=== PATIENT | female | born 1945 | race African-American/Black ===

== ENCOUNTER 2020-01-06 14:46 | Emergency (ER) | payer MEDICARE ==
[~2020-01-06] VITALS: Ht 165.1 cm; Wt 70.0 kg
[2020-01-06] MEDS ORDERED: IBUPROFEN 600MG TABLET PO STA (15:13)
[2020-01-06] MEDS ORDERED: ONDANSETRON 4MG ODT PO STA (15:13)
[2020-01-06] MEDS ORDERED: ACETAMINOPHEN 325MG TABLET PO ONE (15:45)
[2020-01-06 16:25] LABS: BASOPHILS % 0.5 % (0.0-2.0); EOSINOPHILS % 0.2 % (0.0-5.0); HEMATOCRIT. 36.2 % (36.0-48.0); HEMOGLOBIN. 11.8 g/dL (12.0-16.0); LYMPHOCYTES % 12.5 % (20.0-50.0); MEAN CORPUSCULAR HEMOGLOBIN 30.7 pg (28.0-32.0); MEAN CORPUSCULAR VOLUME 94.1 fL (81.0-99.0); MEAN PLATELET VOLUME 8.3 fl (7.4-10.4); MONOCYTES % 8.4 % (2.0-8.0); NEUTROPHILS % 78.4 % (40.0-76.0); PLATELET 196 x1000/uL (130-400); RED BLOOD CELL COUNT 3.85 mill/uL (4.2-5.4); RED CELL DISTRIBUTION WIDTH 14.8 % (11.6-14.6)
[2020-01-06 16:31] LABS: CHLORIDE 107 mEq/L (98-107)
[2020-01-06] MEDS ORDERED: AMLODIPINE 5MG TABLET PO ONE (16:45)
[2020-01-06] MEDS ORDERED: NITROGLYCERIN 0.4MG TABLET SL SL PRN (16:45)
[2020-01-06 17:39] LABS: *AMPHETAMINES SCREEN URINE NEGATIVE (NEGATIVE); *BARBITURATES SCREEN URINE NEGATIVE (NEGATIVE)
[2020-01-06 17:40] LABS: *BENZODIAZEPINES SCREEN URINE NEGATIVE (NEGATIVE); *COCAINE SCREEN URINE NEGATIVE (NEGATIVE); CANNABINOID URINE SCREEN NEGATIVE (NEGATIVE); METHADONE URINE SCREEN NEGATIVE (NEGATIVE); OPIATES URINE SCREEN PRESUMTIVE POSITIVE (NEGATIVE); PHENCYCLIDINE URINE SCREEN NEGATIVE (NEGATIVE)
[2020-01-06 18:59] VITALS: BP 168/94
== END 2020-01-06 19:08 | disposition home or self-care (01) ==
LOC: ER 14:46
DX: I16.0 Hypertensive urgency (principal); M25.512 Pain in left shoulder; J44.9 Chronic obstructive pulmonary disease, unspecified; Z88.0 Allergy status to penicillin
CPT/HCPCS: 36415; 71045; 73030; 80053; 80305; 85025; 93005; 99285; Q0162

== ENCOUNTER 2022-04-26 02:41 | Inpatient (IN) | payer MEDICARE ==
[~2022-04-26] VITALS: Ht 165.1 cm; Wt 80.3 kg
[2022-04-26] MEDS ORDERED: IBUPROFEN 400MG TABLET PO ONE (03:45)
[2022-04-26] MEDS ORDERED: ACETAMINOPHEN 325MG TABLET PO ONE (03:45)
[2022-04-26] MEDS ORDERED: MORPHINE SULFATE 2 MG/ML CPJ (NOT FOR IM USE) IV ONE (04:45)
[2022-04-26] MEDS ORDERED: ONDANSETRON HCL 4MG/2ML INJ IV STA (05:37)
[2022-04-26] MEDS ORDERED: MORPHINE SULFATE 4 MG/ML CPJ (NOT FOR IM USE) IV STA (05:37)
[2022-04-26] MEDS ORDERED: SODIUM CHLORIDE 0.9% 500 ML IV ONE (05:45)
[2022-04-26 10:36] LABS: BASOPHILS % 0.1 % (0.0-2.0); EOSINOPHILS % 0.3 % (0.0-5.0); HEMATOCRIT. 39.8 % (36.0-48.0); HEMOGLOBIN. 12.7 g/dL (12.0-16.0); LYMPHOCYTES % 13.3 % (20.0-50.0); MEAN CORPUSCULAR HEMOGLOBIN 31.2 pg (28.0-32.0); MEAN CORPUSCULAR VOLUME 98.1 fL (81.0-99.0); MEAN PLATELET VOLUME 8.1 fl (7.4-10.4); NEUTROPHILS % 77.3 % (40.0-76.0); PLATELET 178 x1000/uL (130-400); RED BLOOD CELL COUNT 4.06 mill/uL (4.2-5.4); RED CELL DISTRIBUTION WIDTH 15.4 % (11.6-14.6)
[2022-04-26 10:45] LABS: CHLORIDE 106 mEq/L (98-107)
[2022-04-26 11:00] LABS: T4 FREE 1.24 ng/dL (0.76-1.46)
[2022-04-26 12:23] VITALS: BP 199/116
[2022-04-26 12:55] VITALS: BP 199/111
[2022-04-26 13:00] VITALS: BP 120/47
[2022-04-26] MEDS ORDERED: LISINOPRIL 20MG TABLET PO SCH (13:00)
[2022-04-26] MEDS ORDERED: AMLODIPINE 10MG TABLET PO SCH (13:00)
[2022-04-26] MEDS ORDERED: CLONIDINE 0.3MG TABLET PO NR (13:00)
[2022-04-26] MEDS: MORPHINE SULFATE 2 MG/ML CPJ (NOT FOR IM USE) IV PRN (13:17)
[2022-04-26] MEDS ORDERED: HYDRALAZINE HCL 50MG TABLET PO SCH (14:00)
[2022-04-26] MEDS ORDERED: DEXT 5%/0.45% NACL 1000ML 1,000 ML IV SCH (14:45)
[2022-04-26 16:52] VITALS: BP 112/46
[2022-04-26] MEDS ORDERED: ACETAMINOPHEN 325MG TABLET PO PRN (17:45)
[2022-04-26] MEDS ORDERED: ONDANSETRON HCL 4MG/2ML INJ IV PRN (17:45)
[2022-04-26] MEDS ORDERED: GUAIFENESIN 200MG/10ML SUGAR FREE UDC PO PRN (17:45)
[2022-04-26] MEDS ORDERED: IPRATROPIUM/ALBUTEROL 0.5-3(2.5)MG/3ML NEB HHN PRN (17:45)
[2022-04-26] MEDS ORDERED: DEXTROSE 50% WATER 50ML SYRINGE IV PRN (17:45)
[2022-04-26] MEDS ORDERED: MAGNESIUM/ALUMINUM HYDROXIDE/SIMETHICONE 30ML UDC PO PRN (17:45)
[2022-04-26] MEDS ORDERED: LISI40TA13 PO (18:09)
[2022-04-26] MEDS ORDERED: AMLO2.5T45 PO (18:09)
[2022-04-26] MEDS ORDERED: HYDR25TA PO (18:09)
[2022-04-26] MEDS ORDERED: IPRATROPIUM BROMIDE (0.02%) 0.5MG/2.5ML NEB HHN PRN (18:15)
[2022-04-26] MEDS ORDERED: NALOXONE HCL 0.4MG/ML VIAL IV PRN (18:15)
[2022-04-26] MEDS ORDERED: ALBUTEROL (0.083%) 2.5MG/3ML NEB HHN PRN (18:15)
[2022-04-26] MEDS ORDERED: ALLO100T PO (18:21)
[2022-04-26] MEDS ORDERED: WARF4TAB71 PO (18:21)
[2022-04-26 19:55] LABS: PROTHROMBIN TIME 20.6 sec (9.6-11.0)
[2022-04-26] MEDS: SODIUM CHLORIDE 0.9% 1,000 ML IV SCH (19:57)
[2022-04-26 20:00] VITALS: BP 129/59
[2022-04-26] MEDS: FAMOTIDINE 20MG TABLET PO SCH (21:21)
[2022-04-26 21:52] LABS: TOTAL IRON BINDING CAPACITY 221 ug/dL (250-450)
[2022-04-26 21:57] LABS: CREATINE KINASE 332 IU/L (26-192); CREATINE KINASE MB FRACTION 2.7 ng/mL (0.5-3.6)
[2022-04-26] MEDS ORDERED: CLONIDINE 0.3MG TABLET PO SCH (22:00)
[2022-04-26 22:11] LABS: FERRITIN 168 ng/mL (10-291)
[2022-04-26 22:31] LABS: VITAMIN B12 SERUM 1778 pg/mL (211-911)
[2022-04-26 22:55] LABS: FOLIC ACID (FOLATE) SERUM > 20.00 ng/mL (>5.38)
[2022-04-27] VITALS: BP 130/64
[2022-04-27] MEDS: MORPHINE SULFATE 2 MG/ML CPJ (NOT FOR IM USE) IV PRN ×4 (05:29→22:47)
[2022-04-27] MEDS: CLONIDINE 0.1MG TABLET PO PRN (05:46)
[2022-04-27 07:25] LABS: BASOPHILS % 0.3 % (0.0-2.0); EOSINOPHILS % 0.6 % (0.0-5.0); HEMATOCRIT. 35.1 % (36.0-48.0); HEMOGLOBIN. 11.6 g/dL (12.0-16.0); LYMPHOCYTES % 15.7 % (20.0-50.0); MEAN CORPUSCULAR HEMOGLOBIN 31.6 pg (28.0-32.0); MEAN CORPUSCULAR VOLUME 95.4 fL (81.0-99.0); MEAN PLATELET VOLUME 8.3 fl (7.4-10.4); MONOCYTES % 10.2 % (2.0-8.0); NEUTROPHILS % 73.2 % (40.0-76.0); PLATELET 175 x1000/uL (130-400); PROTHROMBIN TIME 20.3 sec (9.6-11.0); RED BLOOD CELL COUNT 3.68 mill/uL (4.2-5.4); RED CELL DISTRIBUTION WIDTH 14.6 % (11.6-14.6)
[2022-04-27 07:36] LABS: CHLORIDE 105 mEq/L (98-107)
[2022-04-27 07:54] LABS: CREATINE KINASE 302 IU/L (26-192); CREATINE KINASE MB FRACTION 1.8 ng/mL (0.5-3.6); HDL CHOLESTEROL 78 mg/dL (40-59); LDL CHOLESTEROL 100 mg/dL (5-100); PHOSPHORUS 2.6 mg/dL (2.5-4.9); T4 FREE 1.26 ng/dL (0.76-1.46)
[2022-04-27 08:00] VITALS: BP 144/61
[2022-04-27] MEDS: AMLODIPINE 2.5MG TABLET PO SCH (09:05)
[2022-04-27] MEDS: HYDROCHLOROTHIAZIDE 25MG TABLET PO SCH (09:05)
[2022-04-27] MEDS: LISINOPRIL 40MG TABLET PO SCH (09:06)
[2022-04-27] MEDS: FAMOTIDINE 20MG TABLET PO SCH ×2 (09:06→22:46)
[2022-04-27 11:17] LABS: CLARITY URINE CLEAR (CLEAR); COLOR URINE YELLOW (YELLOW); KETONES URINE NEGATIVE (NEGATIVE); LEUKOCYTE ESTERASE URINE 2+ (NEGATIVE); NITRITE URINE NEGATIVE (NEGATIVE); OCCULT BLOOD URINE NEGATIVE (NEGATIVE); PROTEIN URINE NEGATIVE (NEGATIVE); SPECIFIC GRAVITY URINE 1.014 (1.005-1.030); UROBILINOGEN URINE 0.2 E.U./dL (0.2-1.0)
[2022-04-27 11:31] LABS: *AMPHETAMINES SCREEN URINE NEGATIVE (NEGATIVE); *BARBITURATES SCREEN URINE NEGATIVE (NEGATIVE); *BENZODIAZEPINES SCREEN URINE NEGATIVE (NEGATIVE); *COCAINE SCREEN URINE NEGATIVE (NEGATIVE); CANNABINOID URINE SCREEN NEGATIVE (NEGATIVE); METHADONE URINE SCREEN NEGATIVE (NEGATIVE); OPIATES URINE SCREEN PRESUMTIVE POSITIVE (NEGATIVE); PHENCYCLIDINE URINE SCREEN NEGATIVE (NEGATIVE)
[2022-04-27 12:00] VITALS: BP 132/58
[2022-04-27 16:00] VITALS: BP 143/68
[2022-04-27] MEDS: SODIUM CHLORIDE 0.9% 1,000 ML IV SCH (16:21)
[2022-04-27] MEDS ORDERED: WARFARIN SODIUM 4MG TABLET PO SCH ×2 (19:45→20:00)
[2022-04-27 20:00] VITALS: BP 159/64
[2022-04-28] VITALS: BP 183/82
[2022-04-28] MEDS: ACETAMINOPHEN 325MG TABLET PO PRN (00:10)
[2022-04-28] MEDS: MORPHINE SULFATE 2 MG/ML CPJ (NOT FOR IM USE) IV PRN ×3 (02:29→10:49)
[2022-04-28] MEDS: CLONIDINE 0.1MG TABLET PO PRN (02:36)
[2022-04-28 04:00] VITALS: BP 190/69
[2022-04-28 07:12] LABS: BASOPHILS % 0.4 % (0.0-2.0); EOSINOPHILS % 0.1 % (0.0-5.0); HEMATOCRIT. 35.7 % (36.0-48.0); HEMOGLOBIN. 11.9 g/dL (12.0-16.0); LYMPHOCYTES % 13.6 % (20.0-50.0); MEAN CORPUSCULAR HEMOGLOBIN 31.6 pg (28.0-32.0); MEAN CORPUSCULAR VOLUME 94.8 fL (81.0-99.0); MEAN PLATELET VOLUME 8.7 fl (7.4-10.4); MONOCYTES % 9.3 % (2.0-8.0); NEUTROPHILS % 76.6 % (40.0-76.0); PLATELET 180 x1000/uL (130-400); RED BLOOD CELL COUNT 3.77 mill/uL (4.2-5.4); RED CELL DISTRIBUTION WIDTH 14.6 % (11.6-14.6)
[2022-04-28 07:35] LABS: CHLORIDE 108 mEq/L (98-107)
[2022-04-28 07:38] LABS: INR 1.7; PROTHROMBIN TIME 17.5 sec (9.6-11.0)
[2022-04-28 07:51] LABS: PHOSPHORUS 3.3 mg/dL (2.5-4.9)
[2022-04-28 08:00] VITALS: BP 158/74
[2022-04-28] MEDS: FAMOTIDINE 20MG TABLET PO SCH ×2 (09:51→21:33)
[2022-04-28] MEDS: AMLODIPINE 2.5MG TABLET PO SCH (09:51)
[2022-04-28] MEDS: LISINOPRIL 40MG TABLET PO SCH (09:51)
[2022-04-28] MEDS: HYDROCHLOROTHIAZIDE 25MG TABLET PO SCH (09:51)
[2022-04-28] MEDS: SODIUM CHLORIDE 0.9% 1,000 ML IV SCH (10:30)
[2022-04-28 12:00] VITALS: BP 128/52
[2022-04-28] MEDS: DOCUSATE SODIUM 100MG CAPSULE PO PRN (15:43)
[2022-04-28 16:00] VITALS: BP 129/60
[2022-04-28] MEDS: HYDROCODONE/ACETAMINOPHEN 10/325MG TABLET PO PRN ×2 (17:02→23:35)
[2022-04-28] MEDS ORDERED: WARFARIN SODIUM 5MG TABLET PO NR (18:00)
[2022-04-28 20:00] VITALS: BP 123/45
[2022-04-29] VITALS: BP 139/65
[2022-04-29] MEDS: ACETAMINOPHEN 325MG TABLET PO PRN (01:59)
[2022-04-29] MEDS: HYDROCODONE/ACETAMINOPHEN 10/325MG TABLET PO PRN ×3 (04:37→23:11)
[2022-04-29] MEDS: SODIUM CHLORIDE 0.9% 1,000 ML IV SCH ×2 (06:30→23:11)
[2022-04-29 06:55] LABS: BASOPHILS % 0.6 % (0.0-2.0); EOSINOPHILS % 1.7 % (0.0-5.0); HEMATOCRIT. 33.9 % (36.0-48.0); HEMOGLOBIN. 11.3 g/dL (12.0-16.0); LYMPHOCYTES % 22.3 % (20.0-50.0); MEAN CORPUSCULAR HEMOGLOBIN 31.8 pg (28.0-32.0); MEAN CORPUSCULAR VOLUME 95.7 fL (81.0-99.0); MEAN PLATELET VOLUME 8.6 fl (7.4-10.4); NEUTROPHILS % 63.4 % (40.0-76.0); PLATELET 181 x1000/uL (130-400); RED BLOOD CELL COUNT 3.54 mill/uL (4.2-5.4); RED CELL DISTRIBUTION WIDTH 14.5 % (11.6-14.6)
[2022-04-29 07:01] LABS: INR 1.9; PROTHROMBIN TIME 19.2 sec (9.6-11.0)
[2022-04-29 07:36] LABS: CHLORIDE 105 mEq/L (98-107)
[2022-04-29 07:48] LABS: PHOSPHORUS 2.9 mg/dL (2.5-4.9)
[2022-04-29 08:00] VITALS: BP 162/62
[2022-04-29] MEDS: GABAPENTIN 300MG CAPSULE PO SCH ×3 (08:00→23:11)
[2022-04-29] MEDS ORDERED: MORPHINE SULFATE 2 MG/ML CPJ (NOT FOR IM USE) IV SCH (09:00)
[2022-04-29] MEDS: HYDROCHLOROTHIAZIDE 25MG TABLET PO SCH (09:03)
[2022-04-29] MEDS: FAMOTIDINE 20MG TABLET PO SCH ×2 (09:04→23:11)
[2022-04-29] MEDS: AMLODIPINE 2.5MG TABLET PO SCH (09:04)
[2022-04-29] MEDS: LISINOPRIL 40MG TABLET PO SCH (09:04)
[2022-04-29 12:00] VITALS: BP 125/62
[2022-04-29 16:00] VITALS: BP 127/50
[2022-04-29] MEDS ORDERED: WARFARIN SODIUM 5MG TABLET PO NR (18:00)
[2022-04-30] MEDS: GABAPENTIN 300MG CAPSULE PO SCH ×2 (05:11→13:52)
[2022-04-30 07:02] LABS: BASOPHILS % 0.3 % (0.0-2.0); EOSINOPHILS % 2.9 % (0.0-5.0); HEMATOCRIT. 34.9 % (36.0-48.0); HEMOGLOBIN. 11.5 g/dL (12.0-16.0); MEAN CORPUSCULAR HEMOGLOBIN 31.7 pg (28.0-32.0); MEAN CORPUSCULAR VOLUME 96.6 fL (81.0-99.0); MEAN PLATELET VOLUME 8.3 fl (7.4-10.4); MONOCYTES % 12.1 % (2.0-8.0); NEUTROPHILS % 60.7 % (40.0-76.0); PLATELET 181 x1000/uL (130-400); RED BLOOD CELL COUNT 3.61 mill/uL (4.2-5.4); RED CELL DISTRIBUTION WIDTH 14.3 % (11.6-14.6)
[2022-04-30 07:22] LABS: INR 2.1; PROTHROMBIN TIME 21.4 sec (9.6-11.0)
[2022-04-30 08:00] VITALS: BP 132/52
[2022-04-30 08:19] LABS: CHLORIDE 107 mEq/L (98-107)
[2022-04-30] MEDS: SODIUM CHLORIDE 0.9% 1,000 ML IV SCH (09:47)
[2022-04-30] MEDS ORDERED: GABA-532 PO (10:01)
[2022-04-30] MEDS: HYDROCODONE/ACETAMINOPHEN 10/325MG TABLET PO PRN (10:04)
[2022-04-30] MEDS: DOCUSATE SODIUM 100MG CAPSULE PO PRN (10:05)
[2022-04-30] MEDS: HYDROCHLOROTHIAZIDE 25MG TABLET PO SCH (10:05)
[2022-04-30] MEDS: AMLODIPINE 2.5MG TABLET PO SCH (10:06)
[2022-04-30] MEDS: LISINOPRIL 40MG TABLET PO SCH (10:06)
[2022-04-30] MEDS: FAMOTIDINE 20MG TABLET PO SCH (10:06)
[2022-04-30 12:00] VITALS: BP 146/63
[2022-04-30 14:01] VITALS: BP 146/63
[2022-04-30] MEDS ORDERED: WARFARIN SODIUM 4MG TABLET PO NR (18:00)
== END 2022-04-30 16:00 | disposition home health service (06) | DRG 563 ==
LOC: ER 02:41 → MICUSO 07:53 → EDBEDREQ 07:55 → EDBEDREQTM 07:55 → 6EST 12:22
PROVIDERS: ADMIT Internal Medicine; ATTEND Internal Medicine
DX: S42.292A Other displaced fracture of upper end of left humerus, initial encounter for closed fracture (principal); N17.9 Acute kidney failure, unspecified; I10 Essential (primary) hypertension; Z20.822 Contact with and (suspected) exposure to COVID-19; E86.0 Dehydration; G62.9 Polyneuropathy, unspecified; G89.29 Other chronic pain; R91.1 Solitary pulmonary nodule; M10.9 Gout, unspecified; Z86.711 Personal history of pulmonary embolism; Z79.01 Long term (current) use of anticoagulants; Z79.899 Other long term (current) drug therapy; Z88.0 Allergy status to penicillin; Z82.49 Family history of ischemic heart disease and other diseases of the circulatory system; W01.0XXA Fall on same level from slipping, tripping and stumbling without subsequent striking against object, initial encounter; Y93.89 Activity, other specified; Y92.89 Other specified places as the place of occurrence of the external cause; Y99.8 Other external cause status
CPT/HCPCS: 36415; 71045; 73030; 73060; 73200; 73502; 73560; 80053; 80061; 80305; 81003; 82550; 82553; 82607; 82728; 82746; 82962; 83036; 83540; 83550; 83735; 83880; 84100; 84439; 84443; 84481; 84484; 85025; 87426; 93005; 93306; 93880; 93970; 97162; 97166; 97530; 97535; 99291; A4565; C1893; J2270; J2405; J7030; J7040

== ENCOUNTER 2024-06-30 16:44 | Inpatient (IN) | payer MEDICARE ==
[~2024-06-30] VITALS: Ht 162.6 cm; Wt 72.1 kg
[~2024-06-30 16:44] MED LIST: ALLO100T PO; AMLO2.5T45 PO; GABA-1180 PO; HYDR25TA PO; LISI40TA13 PO; WARF4TAB71 PO
[2024-06-30 18:15] LABS: CLARITY URINE CLEAR (CLEAR); COLOR URINE YELLOW (YELLOW); SPECIFIC GRAVITY URINE 1.009 (1.005-1.030)
[2024-06-30 18:16] LABS: GLUCOSE URINE TRACE (NEGATIVE); KETONES URINE NEGATIVE (NEGATIVE); LEUKOCYTE ESTERASE URINE TRACE (NEGATIVE); NITRITE URINE NEGATIVE (NEGATIVE); OCCULT BLOOD URINE TRACE (NEGATIVE); PROTEIN URINE 2+ (NEGATIVE); UROBILINOGEN URINE 0.2 E.U./dL (0.2-1.0)
[2024-06-30 18:27] LABS: BASOPHILS % 0.6 % (0.0-2.0); EOSINOPHILS % 0.1 % (0.0-5.0); HEMATOCRIT. 39.3 % (36.0-48.0); HEMOGLOBIN. 13.1 g/dL (12.0-16.0); LYMPHOCYTES % 9.5 % (20.0-50.0); MEAN CORPUSCULAR HEMOGLOBIN 32.4 pg (28.0-32.0); MEAN CORPUSCULAR HGB CONC 33.5 g/dL (31.0-37.0); MEAN CORPUSCULAR VOLUME 96.8 fL (81.0-99.0); MEAN PLATELET VOLUME 9.5 fl (7.4-10.4); MONOCYTES % 6.1 % (2.0-8.0); NEUTROPHILS % 83.7 % (40.0-76.0); PLATELET 191 x1000/uL (130-400); RED BLOOD CELL COUNT 4.06 mill/uL (4.2-5.4); RED CELL DISTRIBUTION WIDTH 14.7 % (11.6-14.6); WHITE BLOOD COUNT 10.5 x1000/uL (4.5-11.0)
[2024-06-30 18:32] LABS: CHLORIDE 103 mEq/L (98-107); POTASSIUM 6.1 mEq/L (3.5-5.1); SODIUM 137 mEq/L (136-145)
[2024-06-30 18:33] LABS: CARBON DIOXIDE 24 mEq/L (21-32)
[2024-06-30 18:34] LABS: CALCIUM 9.7 mg/dL (8.7-10.4)
[2024-06-30] MEDS: MORPHINE SULFATE 4 MG/ML INJ (FOR IV/IM USE) IV STA (18:35)
[2024-06-30] MEDS: ONDANSETRON HCL 4MG/2ML INJ IV STA (18:35)
[2024-06-30 18:38] LABS: CREATININE 1.3 mg/dL (0.6-1.0)
[2024-06-30 18:39] LABS: GLUCOSE 151 mg/dL (70-105); UREA NITROGEN BLOOD 17 mg/dL (9-23)
[2024-06-30 18:40] LABS: ALANINE AMINOTRANSFERASE 29 IU/L (10-49)
[2024-06-30 18:41] LABS: ALBUMIN 4.4 g/dL (3.2-4.8); ASPARTATE AMINOTRANSFERASE 60 IU/L (<34); BILIRUBIN DIRECT 0.1 mg/dL (<=3.0); BILIRUBIN TOTAL 0.7 mg/dL (0.1-1.0); PROTEIN TOTAL 8.8 g/dL (6.0-8.3); TROPONIN I HIGH SENSITIVITY 7 ng/L (3.0-34)
[2024-06-30 18:59] LABS: BACTERIA URINE TRACE; RBC URINE 0-2 /hpf (0-2); SQUAMOUS EPITHELIAL CELL URINE FEW /lpf (RARE/1+); WBC URINE 0-2 /hpf (0-2)
[2024-06-30] MEDS: LABETALOL 5MG/ML 4ML INJ IV ONE ×2 (19:25→21:10)
[2024-06-30 20:02] LABS: TROPONIN I HIGH SENSITIVITY 6 ng/L (3.0-34)
[2024-06-30 20:15] LABS: INR 1.8; PROTHROMBIN TIME 18.4 sec (9.6-11.0)
[2024-06-30] MEDS: LEVOFLOXACIN 750MG PREMIX 150 ML IV ONE (21:11)
[2024-06-30] MEDS ORDERED: LISINOPRIL 40MG TABLET PO SCH (22:00)
[2024-06-30] MEDS: ONDANSETRON HCL 4MG/2ML INJ IV NR (22:06)
[2024-06-30] MEDS: MORPHINE SULFATE 2 MG/ML INJ (NOT FOR IM USE) IV NR (22:07)
[2024-06-30] MEDS: HYDRALAZINE 20MG/ML VIAL IV NR (22:07)
[2024-06-30] MEDS ORDERED: IPRATROPIUM/ALBUTEROL 0.5-3(2.5)MG/3ML NEB HHN PRN (22:15)
[2024-06-30] MEDS ORDERED: DEXTROSE 50% WATER 50ML SYRINGE IV PRN (22:30)
[2024-06-30] MEDS ORDERED: IOHEXOL-350 100 ML BOTTLE ONE (22:48)
[2024-07-01] VITALS (7 sets, daily range): BP systolic 124–181; BP diastolic 50–84; PULSE 88–105; RESP 17–22; TEMP 36.2–37.8; O2SAT 99–100
[2024-07-01] MEDS: AMLODIPINE 10MG TABLET PO SCH (00:16)
[2024-07-01] MEDS: FAMOTIDINE 20MG/2ML VIAL IV SCH (00:16)
[2024-07-01] MEDS: ENOXAPARIN 40MG/0.4ML SYR SUBCUT SCH (00:16)
[2024-07-01] MEDS: HYDROCHLOROTHIAZIDE 25MG TABLET PO SCH (00:16)
[2024-07-01] MEDS: DEXT 5%/0.9% NACL 1,000 ML IV SCH (00:19)
[2024-07-01 01:21] LABS: CHLORIDE 101 mEq/L (98-107); POTASSIUM 4.4 mEq/L (3.5-5.1); SODIUM 135 mEq/L (136-145)
[2024-07-01 01:22] LABS: CARBON DIOXIDE 24 mEq/L (21-32)
[2024-07-01 01:23] LABS: CALCIUM 9.6 mg/dL (8.7-10.4)
[2024-07-01 01:27] LABS: CREATININE 1.3 mg/dL (0.6-1.0); GLUCOSE 173 mg/dL (70-105)
[2024-07-01 01:28] LABS: TROPONIN I HIGH SENSITIVITY 10 ng/L (3.0-34); UREA NITROGEN BLOOD 19 mg/dL (9-23)
[2024-07-01 01:29] LABS: ALANINE AMINOTRANSFERASE 37 IU/L (10-49); ALBUMIN 4.3 g/dL (3.2-4.8); ASPARTATE AMINOTRANSFERASE 68 IU/L (<34)
[2024-07-01 01:30] LABS: BILIRUBIN DIRECT 0.1 mg/dL (<=3.0); BILIRUBIN TOTAL 0.6 mg/dL (0.1-1.0); PROTEIN TOTAL 8.6 g/dL (6.0-8.3)
[2024-07-01 03:50] LABS: HEPATITIS B SURFACE ANTIGEN NEGATIVE (Negative)
[2024-07-01 04:12] LABS: HEPATITIS C AB NON REACTIVE (Neg) (Negative)
[2024-07-01] MEDS: INSULIN LISPRO 100 UNITS/ML SUBCUT SCH (06:21)
[2024-07-01] MEDS: BLOOD SUGAR DIAGNOSTIC STRIP TEST SCH (06:21)
[2024-07-01] MEDS: HYDRALAZINE 20MG/ML VIAL IV PRN (06:28)
[2024-07-01] MEDS ORDERED: DILTIAZEM HCL 180MG CAPSULE ER 24HR PO SCH (06:45)
[2024-07-01 06:50] LABS: HEMATOCRIT. 39.2 % (36.0-48.0); HEMOGLOBIN. 13.1 g/dL (12.0-16.0); MEAN CORPUSCULAR HEMOGLOBIN 32.3 pg (28.0-32.0); MEAN CORPUSCULAR HGB CONC 33.5 g/dL (31.0-37.0); MEAN CORPUSCULAR VOLUME 96.4 fL (81.0-99.0); MEAN PLATELET VOLUME 8.5 fl (7.4-10.4); PLATELET 161 x1000/uL (130-400); RED BLOOD CELL COUNT 4.06 mill/uL (4.2-5.4); RED CELL DISTRIBUTION WIDTH 14.3 % (11.6-14.6); WHITE BLOOD COUNT 10.1 x1000/uL (4.5-11.0)
[2024-07-01] MEDS: LISINOPRIL 40MG TABLET PO SCH (06:53)
[2024-07-01] MEDS: MORPHINE SULFATE 2 MG/ML INJ (NOT FOR IM USE) IV PRN (06:54)
[2024-07-01 07:15] LABS: POTASSIUM 4.4 mEq/L (3.5-5.1)
[2024-07-01 07:16] LABS: TROPONIN I HIGH SENSITIVITY 14 ng/L (3.0-34)
[2024-07-01 07:17] LABS: CALCIUM 9.4 mg/dL (8.7-10.4)
[2024-07-01 07:21] LABS: CREATININE 1.4 mg/dL (0.6-1.0)
[2024-07-01 07:22] LABS: ALBUMIN 3.8 g/dL (3.2-4.8); T4 FREE 1.1 ng/dL (0.89-1.76)
[2024-07-01 07:23] LABS: THYROID STIMULATING HORMONE 0.67 uIU/mL (0.55-4.78)
[2024-07-01 07:46] LABS: DIFFERENTIAL COMMENT 1
[2024-07-01] MEDS: ALLOPURINOL 100 MG TABLET PO SCH (08:57)
[2024-07-01] MEDS: ACETAMINOPHEN 325MG TABLET PO PRN (08:57)
[2024-07-01] MEDS: LEVOFLOXACIN 750MG PREMIX 150 ML IV SCH (08:58)
[2024-07-01] MEDS: METOPROLOL TARTRATE 50MG TABLET PO SCH (09:01)
[2024-07-01] MEDS: ONDANSETRON HCL 4MG/2ML INJ IV PRN (11:17)
[2024-07-01 15:22] LABS: *AMPHETAMINES SCREEN URINE NEGATIVE (NEGATIVE)
[2024-07-01 15:23] LABS: *BARBITURATES SCREEN URINE NEGATIVE (NEGATIVE); *BENZODIAZEPINES SCREEN URINE NEGATIVE (NEGATIVE); *COCAINE SCREEN URINE NEGATIVE (NEGATIVE); CANNABINOID URINE SCREEN NEGATIVE (NEGATIVE); ECSTASY MDMA SCREEN URINE NEGATIVE (NEGATIVE); METHADONE URINE SCREEN NEGATIVE (NEGATIVE); OPIATES URINE SCREEN PRESUMPTIVE POSITIVE (NEGATIVE); PHENCYCLIDINE URINE SCREEN NEGATIVE (NEGATIVE)
[2024-07-01 17:42] LABS: PLATELET ESTIMATE NORMAL
[2024-07-01 19:46] LABS: CREATINE KINASE MB FRACTION 7.8 ng/mL (0.5-3.6)
[2024-07-01 19:49] LABS: T4 FREE 1.19 ng/dL (0.89-1.76)
[2024-07-01] MEDS: ENOXAPARIN 80MG/0.8ML SYR SUBCUT SCH (22:03)
[2024-07-02] VITALS: BP 117/59; PULSE 84; RESP 20; TEMP 37; O2SAT 99
[2024-07-02 01:59] LABS: CREATINE KINASE MB FRACTION 5.8 ng/mL (0.5-3.6)
[2024-07-02 04:00] VITALS: BP 118/58; PULSE 88; RESP 20; TEMP 36.7; O2SAT 98
[2024-07-02 07:15] LABS: POTASSIUM 4.3 mEq/L (3.5-5.1)
[2024-07-02 07:16] LABS: CALCIUM 8.9 mg/dL (8.7-10.4)
[2024-07-02 07:18] LABS: HEMATOCRIT. 36.8 % (36.0-48.0); HEMOGLOBIN. 12.2 g/dL (12.0-16.0); MEAN CORPUSCULAR HEMOGLOBIN 32.3 pg (28.0-32.0); MEAN CORPUSCULAR HGB CONC 33.2 g/dL (31.0-37.0); MEAN CORPUSCULAR VOLUME 97.2 fL (81.0-99.0); PLATELET 140 x1000/uL (130-400); RED BLOOD CELL COUNT 3.79 mill/uL (4.2-5.4); RED CELL DISTRIBUTION WIDTH 14.8 % (11.6-14.6); WHITE BLOOD COUNT 16.4 x1000/uL (4.5-11.0)
[2024-07-02 07:21] LABS: CREATININE 1.6 mg/dL (0.6-1.0)
[2024-07-02 07:22] LABS: CREATINE KINASE MB FRACTION 3.9 ng/mL (0.5-3.6)
[2024-07-02 07:52] LABS: DIFFERENTIAL COMMENT 1
[2024-07-02 08:08] VITALS: BP 150/64; PULSE 93; RESP 18; TEMP 36.6; O2SAT 100
[2024-07-02] MEDS ORDERED: NALOXONE HCL 0.4MG/ML VIAL IV PRN (08:30)
[2024-07-02] MEDS: HYDRALAZINE HCL 100MG TABLET PO SCH (08:30)
[2024-07-02] MEDS: ASPIRIN 81MG TABLET PO SCH (08:52)
[2024-07-02 12:10] VITALS: BP 91/58; PULSE 97; RESP 16; TEMP 36.8; O2SAT 100
[2024-07-02 12:49] LABS: PLATELET ESTIMATE NORMAL
[2024-07-02 16:00] VITALS: BP 106/38; PULSE 88; RESP 18; TEMP 36.9; O2SAT 100
[2024-07-02 20:00] VITALS: BP 111/45; PULSE 84; RESP 20; TEMP 36.6; O2SAT 100
[2024-07-03] VITALS: BP 128/44; PULSE 90; RESP 20; TEMP 36.5; O2SAT 90
[2024-07-03 04:00] VITALS: BP 133/56; PULSE 100; RESP 20; TEMP 36.6; O2SAT 99
[2024-07-03 08:14] VITALS: BP 104/46; PULSE 72; RESP 20
[2024-07-03] MEDS: ACETAMINOPHEN 325MG TABLET PO PRN (08:17)
[2024-07-03] MEDS: LEVOFLOXACIN 750MG PREMIX 150 ML IV SCH (11:28)
[2024-07-03 12:00] VITALS: BP 114/43; PULSE 100; RESP 19; TEMP 36.9; O2SAT 100
[2024-07-03 14:34] LABS: TROPONIN I HIGH SENSITIVITY 189 ng/L (3.0-34)
[2024-07-03] MEDS: SODIUM CHLORIDE 0.9% 1,000 ML IV NR (15:53)
[2024-07-03 16:00] VITALS: BP 138/58; PULSE 100; RESP 19; TEMP 36.5; O2SAT 100
[2024-07-03 17:30] LABS: CREATINE KINASE MB FRACTION 2.5 ng/mL (0.5-3.6)
[2024-07-03 20:00] VITALS: BP 134/54; PULSE 108; RESP 19; TEMP 37.1; O2SAT 99
[2024-07-04] VITALS: BP 143/43; PULSE 111; RESP 18; TEMP 36.2; O2SAT 99
[2024-07-04 00:31] LABS: CREATINE KINASE MB FRACTION 2.4 ng/mL (0.5-3.6)
[2024-07-04 04:00] VITALS: BP 133/53; PULSE 108; RESP 18; TEMP 36.7; O2SAT 100
[2024-07-04 06:47] LABS: CREATINE KINASE MB FRACTION 2.8 ng/mL (0.5-3.6)
[2024-07-04 08:00] VITALS: BP 136/58; PULSE 115; RESP 20; TEMP 36.7; O2SAT 98
[2024-07-04 12:00] VITALS: BP 116/46; PULSE 91; RESP 20; TEMP 36.6; O2SAT 99
[2024-07-04 16:00] VITALS: BP 140/46; PULSE 95; RESP 20; TEMP 36.6; O2SAT 99
[2024-07-04 20:00] VITALS: BP 109/51; PULSE 94; RESP 22; TEMP 36.6; O2SAT 97
[2024-07-05] VITALS (7 sets, daily range): BP systolic 100–141; BP diastolic 40–63; PULSE 84–109; RESP 18–20; TEMP 36–37.2; O2SAT 95–100
[2024-07-05 06:36] LABS: POTASSIUM 3.7 mEq/L (3.5-5.1)
[2024-07-05 06:37] LABS: CALCIUM 8.9 mg/dL (8.7-10.4)
[2024-07-05 07:11] LABS: BASOPHILS % 0.1 % (0.0-2.0); EOSINOPHILS % 0.2 % (0.0-5.0); HEMATOCRIT. 32.6 % (36.0-48.0); HEMOGLOBIN. 10.9 g/dL (12.0-16.0); LYMPHOCYTES % 10.5 % (20.0-50.0); MEAN CORPUSCULAR HEMOGLOBIN 32.4 pg (28.0-32.0); MEAN CORPUSCULAR HGB CONC 33.4 g/dL (31.0-37.0); MEAN CORPUSCULAR VOLUME 97.1 fL (81.0-99.0); MEAN PLATELET VOLUME 9.4 fl (7.4-10.4); MONOCYTES % 9.5 % (2.0-8.0); NEUTROPHILS % 79.7 % (40.0-76.0); PLATELET 137 x1000/uL (130-400); RED BLOOD CELL COUNT 3.36 mill/uL (4.2-5.4); RED CELL DISTRIBUTION WIDTH 14.4 % (11.6-14.6); WHITE BLOOD COUNT 8.1 x1000/uL (4.5-11.0)
[2024-07-05] MEDS ORDERED: LIDOCAINE HCL 1% 10 MG/ML 10ML VIAL ONE (07:33)
[2024-07-05 08:09] LABS: CREATININE 2.1 mg/dL (0.6-1.0)
[2024-07-06] VITALS: BP 151/70; PULSE 87; RESP 18; TEMP 36.6; O2SAT 93
[2024-07-06 04:00] VITALS: BP 147/56; PULSE 84; RESP 21; TEMP 36.6; O2SAT 98
[2024-07-06 08:00] VITALS: BP 120/55; PULSE 88; RESP 20; TEMP 36.7; O2SAT 93
[2024-07-06 13:00] VITALS: BP 121/56; PULSE 76; RESP 18; TEMP 36.8; O2SAT 93
[2024-07-06 16:00] VITALS: BP 139/61; PULSE 80; RESP 16; TEMP 36.6; O2SAT 95
[2024-07-06 20:00] VITALS: BP 129/42; PULSE 88; RESP 20; TEMP 36.5; O2SAT 95
[2024-07-07] VITALS: BP 135/48; PULSE 96; RESP 21; TEMP 36.8; O2SAT 97
[2024-07-07 04:00] VITALS: BP 140/54; PULSE 88; RESP 21; TEMP 36.6; O2SAT 94
[2024-07-07 08:00] VITALS: BP 108/48; PULSE 96; RESP 18; TEMP 36.6; O2SAT 96
[2024-07-07] MEDS: GABAPENTIN 300MG CAPSULE PO SCH (11:30)
[2024-07-07 12:00] VITALS: BP 110/50; PULSE 95; RESP 18; TEMP 36.7; O2SAT 100
[2024-07-07 16:00] VITALS: BP 115/48; PULSE 98; RESP 18; TEMP 36.6; O2SAT 97
[2024-07-07 20:00] VITALS: BP 127/55; PULSE 98; RESP 20; TEMP 36.6; O2SAT 98
[2024-07-08] VITALS (8 sets, daily range): BP systolic 123–143; BP diastolic 45–68; PULSE 73–87; RESP 18–21; TEMP 36–37.1; O2SAT 94–98
[2024-07-08] MEDS ORDERED: TRAM50TA3 MT (11:07)
[2024-07-08] MEDS ORDERED: NALOXONE HCL 0.4MG/ML VIAL IV PRN (11:30)
[2024-07-08] MEDS: TRAMADOL 50MG TABLET PO NR (11:31)
== END 2024-07-08 21:32 | disposition home health service (06) | DRG 304 ==
LOC: ER 16:44 → EDBEDREQ 19:44 → 8WST 22:52
PROVIDERS: ADMIT Internal Medicine; ATTEND Internal Medicine
DX: I16.1 Hypertensive emergency (principal); N17.0 Acute kidney failure with tubular necrosis; K29.70 Gastritis, unspecified, without bleeding; K57.30 Diverticulosis of large intestine without perforation or abscess without bleeding; K52.9 Noninfective gastroenteritis and colitis, unspecified; K42.9 Umbilical hernia without obstruction or gangrene; M16.0 Bilateral primary osteoarthritis of hip; G89.29 Other chronic pain; I25.10 Atherosclerotic heart disease of native coronary artery without angina pectoris; I05.0 Rheumatic mitral stenosis; R73.03 Prediabetes; Z20.822 Contact with and (suspected) exposure to COVID-19; M10.9 Gout, unspecified; K21.9 Gastro-esophageal reflux disease without esophagitis; R79.89 Other specified abnormal findings of blood chemistry; Z79.01 Long term (current) use of anticoagulants; Z79.899 Other long term (current) drug therapy; Z86.711 Personal history of pulmonary embolism; Z88.0 Allergy status to penicillin; Z90.49 Acquired absence of other specified parts of digestive tract; Z91.148 Patient's other noncompliance with medication regimen for other reason; Z99.81 Dependence on supplemental oxygen; Z88.8 Allergy status to other drugs, medicaments and biological substances
CPT/HCPCS: 36415; 71045; 71275; 74174; 80048; 80061; 80076; 80305; 81003; 82040; 82150; 82550; 82553; 82962; 83036; 83605; 83735; 83880; 84100; 84145; 84300; 84439; 84443; 84484; 85025; 85379; 86705; 87340; 87426; 93005; 93306; 93970; 96365; 96375; 96376; 97116; 97162; 97166; 97530; 97535; 99291; J0360; J1650; J1815; J1956; J2003; J2270; J2405; J3490; Q9967

== ENCOUNTER 2024-09-21 11:24 | Emergency (ER) | payer MEDICARE ==
[~2024-09-21] VITALS: Ht 167.6 cm; Wt 70.0 kg
[~2024-09-21 11:24] MED LIST changes: -ALLO100T PO; -GABA-1180 PO; +TRAM50TA3 MT
[2024-09-21 11:27] VITALS: O2SAT 98
[2024-09-21 12:16] LABS: PLATELET 166 x1000/uL (130-400); RED BLOOD CELL COUNT 3.52 mill/uL (4.2-5.4); RED CELL DISTRIBUTION WIDTH 14.7 % (11.6-14.6)
[2024-09-21 12:43] LABS: INR 2.3
[2024-09-21 13:10] VITALS: BP 124/61; PULSE 78; RESP 18; TEMP 36.9; O2SAT 98
== END 2024-09-21 13:11 | disposition home or self-care (01) ==
LOC: ER 11:24
DX: R04.0 Epistaxis (principal); D64.9 Anemia, unspecified; J44.9 Chronic obstructive pulmonary disease, unspecified; I10 Essential (primary) hypertension; Z79.01 Long term (current) use of anticoagulants; Z79.899 Other long term (current) drug therapy; Z98.890 Other specified postprocedural states; Z88.0 Allergy status to penicillin
CPT/HCPCS: 36415; 85027; 99283